=== PATIENT | female | born 2000 | race Caucasian/White ===

== ENCOUNTER 2021-04-07 07:31 | Emergency (ER) | payer MEDICAID ==
[~2021-04-07] VITALS: Ht 154.9 cm; Wt 44.9 kg
[2021-04-07 07:34] VITALS: BP 104/51
--- NOTE | 2021-04-07 08:00 | NUR ---
PATIENT AMBULATED TO BED, BIB SELF. PRESENTS TO ED WITH EPIGASTRIC PAIN. PT STATES STARTED A MONTH AGO. RELIEF WITH OTC PAIN MEDS. WORSENING FOR THE PAST WEEK. DENIES N/V/D; SKIN IS PINK/WARM/DRY; AAOX4 WITH EVEN AND STEADY GAIT; LUNGS CLEAR BL; HR EVEN AND REGULAR; PT DENIES ANY FEVER, CP, SOB, OR COUGH AT THIS TIME; PATIENT STATES PAIN OF 7/10 AT THIS TIME; VSS; PATIENT POSITIONED FOR COMFORT; HOB ELEVATED; BEDRAILS UP X2; BED DOWN. ER MD MADE AWARE OF PT STATUS. PMH: DENIES MEDS TAKEN: 1G TYLENOL, IBUPROFEN
--- NOTE | 2021-04-07 08:05 | NUR ---
SEEN AND EXAMINED BY DR OLIVER. ORDERS RECEIVED.
--- NOTE | 2021-04-07 08:10 | NUR ---
PT AMBULATED TO BATHROOM
--- NOTE | 2021-04-07 08:23 | NUR ---
Note undone in EDM - 04/07/21 at 0824 by SCOTT PATIENT AMBULATED TO BED, BIB SELF. PRESENTS TO ED WITH EPIGASTRIC PAIN. PT STATES STARTED A MONTH AGO. RELIEF WITH OTC PAIN MEDS. WORSENING FOR THE PAST WEEK. DENIES N/V/D; SKIN IS PINK/WARM/DRY; AAOX4 WITH EVEN AND STEADY GAIT; LUNGS CLEAR BL; HR EVEN AND REGULAR; PT DENIES ANY FEVER, CP, SOB, OR COUGH AT THIS TIME; PATIENT STATES PAIN OF 7/10 AT THIS TIME; VSS; PATIENT POSITIONED FOR COMFORT; HOB ELEVATED; BEDRAILS UP X2; BED DOWN. ER MADE AWARE OF PT STATUS. PMH: DENIES MEDS TAKEN: 1G TYLENOL, IBUPROFEN
[2021-04-07 08:38] LABS: APPEARANCE,URINE HAZY (CLEAR); BILIRUBIN,URINE NEGATIVE (NEGATIVE); BLOOD, URINE TRACE-I (NEGATIVE); COLOR,URINE YELLOW (YELLOW); LEUKOCYTE ESTERASE ,URINE 2+ (NEGATIVE); NITRITE, URINE NEGATIVE (NEGATIVE); UGLUCOSE NEGATIVE (NEGATIVE)
[2021-04-07] MEDS: ALUMINUM HYD/MAG/SIMETHICONE 30 ML UDC PO ONE (08:47)
[2021-04-07] MEDS: SUCRALFATE 1 GM TAB PO SCH (08:47)
[2021-04-07 08:53] LABS: CALCIUM OXALATE CRYSTALS,UR None Seen /HPF (None Seen); COARSE GRANULAR CASTS,URINE None Seen /LPF (None Seen); FINE GRANULAR CASTS,URINE None Seen /LPF (None Seen); HYALINE CASTS, URINE None Seen /LPF (None Seen); OTHER CASTS, URINE None Seen /LPF (None Seen); OTHER CRYSTALS,URINE None Seen /HPF (None Seen); RBC,URINE 0-5 /HPF (0-5); RED BLOOD CELL CASTS,URINE None Seen /LPF (None Seen); TRICHOMONAS,URINE None Seen /HPF (None Seen); TRIPLE PHOSPHATE CRYSTAL,UR None Seen /HPF (None Seen); URIC ACID CRYSTALS,URINE None Seen /HPF (None Seen); URINE AMORPHOUS URATE None Seen /HPF (None Seen); WAXY CASTS,URINE None Seen /LPF (None Seen); YEAST,URINE None Seen /HPF (None Seen)
--- NOTE | 2021-04-07 10:25 | NUR ---
Patient discharged with v/s stable. Written and verbal after care instructions given and explained. Patient verbalized understanding. Ambulatory with steady gait. All questions addressed prior to discharge. Advised to follow up with PMD.
[2021-04-07 10:26] VITALS: BP 104/51
== END 2021-04-07 10:25 | disposition home or self-care (01) ==
LOC: MED 07:31
DX: K29.70 Gastritis, unspecified, without bleeding (principal)
CPT/HCPCS: 81001; 81025; 87086; 99284

== ENCOUNTER 2022-02-22 05:41 | Emergency (ER) | payer MEDICAID ==
[~2022-02-22] VITALS: Ht 149.9 cm; Wt 42.2 kg
[2022-02-22 05:48] VITALS: BP 114/67
--- NOTE | 2022-02-22 05:51 | NUR ---
TO LOBBY A/W BED AMBULATORY
[2022-02-22 07:10] LABS: BASOPHILS % (AUTO) 0.4 % (0.0-2.0); EOSINOPHILS # (AUTO) 0.2 K/uL (0-0.4); EOSINOPHILS % (AUTO) 1.7 % (0.0-4.0); HEMATOCRIT 36.5 % (36-48); HEMOGLOBIN 12.5 g/dL (12.0-16.0); LYMPHOCYTES # (AUTO) 1.6 K/uL (2.5-16.5); LYMPHOCYTES % (AUTO) 16.7 % (20.5-51.1); MEAN CORPUSCULAR HEMOGLOBIN 29 pg (27-31); MEAN CORPUSCULAR HGB CONC 34 g/dL (33-37); MEAN CORPUSCULAR VOLUME 84.9 fL (80-94); MONOCYTES # (AUTO) 0.5 K/uL (0.8-1.0); NEUTROPHILS # (AUTO) 7.2 K/uL (1.8-7.7); NEUTROPHILS % (AUTO) 76.2 % (42.2-75.2); PLATELET COUNT (AUTO) 241 K/uL (140-450); RED BLOOD CELL COUNT(AUTO) 4.31 MIL/uL (4.20-5.40); RED CELL DISTRIBUTION WIDTH 13.9 % (11.6-13.7); WHITE BLOOD COUNT (AUTO) 9.5 K/uL (4.8-10.8)
[2022-02-22 07:51] LABS: APPEARANCE,URINE SL CLOUDY (CLEAR); BILIRUBIN,URINE NEGATIVE (NEGATIVE); BLOOD, URINE 3+ (NEGATIVE); COLOR,URINE ORANGE (YELLOW); LEUKOCYTE ESTERASE ,URINE 3+ (NEGATIVE); NITRITE, URINE NEGATIVE (NEGATIVE); UGLUCOSE NEGATIVE (NEGATIVE)
[2022-02-22 08:01] LABS: OTHER CASTS, URINE None Seen /LPF (None Seen); RBC,URINE 20-50 /HPF (0-5); WBC,URINE 16-25 (MOD) /HPF (0-5)
[2022-02-22] MEDS ORDERED: NITR100C7 PO (08:57)
== END 2022-02-22 09:04 | disposition home or self-care (01) ==
LOC: MED 05:41
DX: O23.41 Unspecified infection of urinary tract in pregnancy, first trimester (principal); N39.0 Urinary tract infection, site not specified; Z3A.08 8 weeks gestation of pregnancy
CPT/HCPCS: 36415; 76817; 81001; 81025; 84702; 85025; 86900; 86901; 87086; 99284; Q0092

== ENCOUNTER 2022-08-21 16:04 | Inpatient (IN) | payer OTHER, MEDICAID ==
[~2022-08-21] VITALS: Ht 149.9 cm; Wt 53.5 kg
[~2022-08-21 16:04] MED LIST: NITR100C7 PO
[2022-08-21 17:18] LABS: BASOPHILS % (AUTO) 0.5 % (0.0-2.0); EOSINOPHILS # (AUTO) 0.1 K/uL (0-0.4); EOSINOPHILS % (AUTO) 0.9 % (0.0-4.0); HEMATOCRIT 27.8 % (36-48); HEMOGLOBIN 9.3 g/dL (12.0-16.0); LYMPHOCYTES # (AUTO) 1.3 K/uL (2.5-16.5); LYMPHOCYTES % (AUTO) 20.3 % (20.5-51.1); MEAN CORPUSCULAR HEMOGLOBIN 25 pg (27-31); MEAN CORPUSCULAR HGB CONC 33 g/dL (33-37); MEAN CORPUSCULAR VOLUME 75.7 fL (80-94); MONOCYTES # (AUTO) 0.4 K/uL (0.8-1.0); MONOCYTES % (AUTO) 6.2 % (1.7-9.3); NEUTROPHILS # (AUTO) 4.6 K/uL (1.8-7.7); NEUTROPHILS % (AUTO) 72.1 % (42.2-75.2); PLATELET COUNT (AUTO) 173 K/uL (140-450); RED BLOOD CELL COUNT(AUTO) 3.68 MIL/uL (4.20-5.40); RED CELL DISTRIBUTION WIDTH 16.1 % (11.6-13.7); WHITE BLOOD COUNT (AUTO) 6.4 K/uL (4.8-10.8)
[2022-08-21 17:40] LABS: ALBUMIN 2.6 g/dL (3.4-5.0); ANION GAP 13.4 (8-16); CARBON DIOXIDE 23.7 mmol/L (21-32); CREATININE 0.4 mg/dL (0.6-1.3); POTASSIUM 4.1 mmol/L (3.5-5.1); TOTAL BILIRUBIN 0.7 mg/dL (0.0-1.0)
[2022-08-21 17:50] VITALS: BP 113/63; PULSE 73; RESP 20; TEMP 99.3
[2022-08-21] MEDS ORDERED: TERBUTALINE 1 MG/ML VIAL SUBQ SCH (18:10)
[2022-08-21] MEDS ORDERED: BETAMETH ACET/BETAMETH NA PH 30 MG/5 ML VIAL IM SCH (18:30)
[2022-08-21] MEDS: TERBUTALINE 1 MG/ML VIAL SUBQ SCH ×2 (19:55→20:36)
[2022-08-21] MEDS ORDERED: MAG SULF 20 GM/H2O PREMIX DRIP 500 ML IV SCH (21:55)
[2022-08-21] MEDS ORDERED: MAG SULF 20 GM/H2O PREMIX DRIP 500 ML IV ONE (22:04)
[2022-08-21] MEDS: LACTATED RINGERS 1,000 ML IV SCH (22:22)
[2022-08-22] MEDS: LACTATED RINGERS 1,000 ML IV SCH (11:56)
[2022-08-22] MEDS ORDERED: NIFEdipine 10 MG CAPLF PO ONE (13:20)
[2022-08-22] MEDS ORDERED: BETAMETH ACET/BETAMETH NA PH 30 MG/5 ML VIAL IM SCH (20:00)
== END 2022-08-22 15:35 | disposition critical access hospital (66) | DRG 831 ==
LOC: MLD 16:04 → OBSVTOIN 08-22 07:41
PROVIDERS: ADMIT Obstetrics & Gynecology; ATTEND Obstetrics & Gynecology
DX: O32.1XX0 Maternal care for breech presentation, not applicable or unspecified (principal); O60.03 Preterm labor without delivery, third trimester; Z20.822 Contact with and (suspected) exposure to COVID-19; Z3A.33 33 weeks gestation of pregnancy
CPT/HCPCS: G0378 ×8; 36415; 76805; 76817; 80053; 83735; 85025; J0702; J3105; J3475; J7120; Q0092

== ENCOUNTER 2023-07-29 09:12 | Emergency (ER) | payer OTHER, MEDICAID ==
[~2023-07-29] VITALS: Ht 149.9 cm; Wt 41.3 kg
[~2023-07-29 09:12] MED LIST changes: +LOPE-289 PO; +ONDA-188 PO
[2023-07-29 09:46] VITALS: BP 105/60; PULSE 69; RESP 18; TEMP 97.3; O2SAT 97
[2023-07-29] MEDS ORDERED: LOPE-143 PO (10:43)
[2023-07-29] MEDS ORDERED: PROM118S5 PO (10:43)
[2023-07-29 11:02] VITALS: BP 104/63; PULSE 74; RESP 16; TEMP 98.2; O2SAT 99
[2023-07-29 11:55] LABS: FLU A ANTIGEN negative (NEGATIVE); FLU B ANTIGEN negative (NEGATIVE)
[2023-07-29 14:16] LABS: APPEARANCE,URINE CLEAR (CLEAR); BILIRUBIN,URINE NEGATIVE (NEGATIVE); BLOOD, URINE TRACE-I (NEGATIVE); COLOR,URINE YELLOW (YELLOW); LEUKOCYTE ESTERASE ,URINE 1+ (NEGATIVE); NITRITE, URINE NEGATIVE (NEGATIVE); PROTEIN,URINE NEGATIVE (NEGATIVE); UGLUCOSE NEGATIVE (NEGATIVE); UROBILINOGEN,URINE 0.2 EU/dL (0.2 - 1)
[2023-07-29 14:25] LABS: BACTERIA,URINE 10-30 (MOD) /HPF (None Seen); RBC,URINE 0-5 /HPF (0-5); SQUAMOUS EPITHELIAL CELL,UR 0-3 (FEW) /LPF (0-3 (FEW))
== END 2023-07-29 10:59 | disposition home or self-care (01) ==
LOC: MED 09:12
DX: B34.9 Viral infection, unspecified (principal); Z20.822 Contact with and (suspected) exposure to COVID-19; R19.7 Diarrhea, unspecified; Z79.899 Other long term (current) drug therapy
CPT/HCPCS: 81001; 81025; 87086; 87186; 99283